=== PATIENT | female | born 1985 | race Caucasian/White ===

== ENCOUNTER 2018-10-16 15:25 | Outpatient (CLI) | payer OTHER | END 2018-10-16 16:35 | disposition home or self-care (01) | LOC: NST 15:25 | DX: Z34.83 Encounter for supervision of other normal pregnancy, third trimester (principal) ==

== ENCOUNTER 2018-12-11 15:13 | Inpatient (IN) | payer OTHER ==
[~2018-12-11] VITALS: Ht 162.6 cm; Wt 3.6 kg
[2019-01-13] MEDS ORDERED: OBSTETRIX ONE1 EACH PO (08:25)
== END 2019-01-16 14:59 | disposition home or self-care (01) | DRG 807 ==
LOC: OB/GYN 01-08 11:10 → LDR 01-12 14:26 → O/R 01-13 19:09 → SURG-SUITE 01-13 20:36
PROVIDERS: ADMIT Obstetrics & Gynecology Maternal & Fetal Medicine
PROC: 3E0P7VZ Introduction of Hormone into Female Reproductive, Via Natural or Artificial Opening (ICD-10-PCS; 2019-01-12)
PROC: 4A1HXCZ Monitoring of Products of Conception, Cardiac Rate, External Approach (ICD-10-PCS; 2019-01-12)
PROC: 3E033VJ Introduction of Other Hormone into Peripheral Vein, Percutaneous Approach (ICD-10-PCS; 2019-01-13)
PROC: 10E0XZZ Delivery of Products of Conception, External Approach (ICD-10-PCS; principal; 2019-01-13 18:00)
DX: O82 Encounter for cesarean delivery without indication (principal); Z37.0 Single live birth; O61.0 Failed medical induction of labor; Z3A.40 40 weeks gestation of pregnancy

== ENCOUNTER 2019-01-04 09:16 | Outpatient (CLI) | payer OTHER | END 2019-01-04 12:05 | disposition home or self-care (01) | LOC: NST 09:16 | DX: Z34.83 Encounter for supervision of other normal pregnancy, third trimester (principal) ==

== ENCOUNTER 2019-01-11 09:44 | Outpatient (CLI) | payer OTHER | END 2019-01-11 11:09 | disposition home or self-care (01) | LOC: NST 09:44 | DX: Z34.83 Encounter for supervision of other normal pregnancy, third trimester (principal) ==